=== PATIENT | male | born 1995 | race African-American/Black ===

== ENCOUNTER 2020-05-18 18:53 | Emergency (ER) | payer OTHER ==
--- NOTE | 2020-05-18 19:14 | ER Document Report ---
ED Medical Screen (RME) - General Chief Complaint: Chest Pain Stated Complaint: RAPID HEART RATE, Time Seen by Provider: 05/18/20 19:09 Mode of Arrival: Ambulatory Information source: Patient Notes: 25-year-old male presented to ED for anxiety and chest pain. He states he took a withdrawal from a friend's vape and did not realize that it was laced with marijuana and has become very anxious and his chest is hurting he is having palpitations. 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 He states he goes to school online. He is requesting something to reverse the marijuana and the anxiety. He states he is very anxious. I have greeted and performed a rapid initial assessment of this patient. A comprehensive ED assessment and evaluation of the patient, analysis of test results and completion of medical decision making process will be conducted by an additional ED providers. - Related Data Allergies/Adverse Reactions: No Known Allergies Allergy (Unverified 05/18/20 19:07)
--- NOTE | 2020-05-18 19:34 | RADIOLOGY REPORT (SQ) ---
EXAM DESCRIPTION: CHEST 2 VIEWS IMAGES COMPLETED DATE/TIME: 05/18/2020 7:27 pm REASON FOR STUDY: chest pain COMPARISON: None. EXAM PARAMETERS: NUMBER OF VIEWS: two views TECHNIQUE: Digital Frontal and Lateral radiographic views of the chest acquired. RADIATION DOSE: NA LIMITATIONS: none FINDINGS: LUNGS AND PLEURA: Hyperexpansion. No consolidation or effusions. No pneumothorax. MEDIASTINUM AND HILAR STRUCTURES: No masses or contour abnormalities. HEART AND VASCULAR STRUCTURES: Heart normal size. No evidence for failure. BONES: No acute findings. HARDWARE: None in the chest. OTHER: No other significant finding. IMPRESSION: Mild hyperexpansion otherwise negative two-view chest. TECHNICAL DOCUMENTATION: JOB ID: [id number] 2010 [employer]- All Rights Reserved Reading location - IP/workstation name: [email or web address]
[2020-05-18] MEDS ORDERED: LORAZEPAM 0.5 MG TABLET PO ONE (19:35)
[2020-05-18 19:39] LABS: ABSOLUTE EOSINOPHILS # (AUTO) 0.2 10^3/uL (0.0-0.6); ABSOLUTE LYMPHOCYTES (AUTO) 3.5 10^3/uL (0.5-4.7); ABSOLUTE MONOCYTES (AUTO) 0.3 10^3/uL (0.1-1.4); ABSOLUTE NEUT (AUTO) 2.7 10^3/uL (1.7-8.2); BASOPHILS % (AUTO) 0.5 % (0-2); EOSINOPHILS % (AUTO) 2.5 % (0-6); HEMATOCRIT 44.1 % (37.9-51.0); HEMOGLOBIN 15.3 g/dL (13.5-17.0); LYMPHOCYTES % (AUTO) 51.9 % (13-45); MEAN CORPUSCULAR HEMOGLOBIN 30.7 pg (27.0-33.4); MEAN CORPUSCULAR HGB CONC 34.8 g/dL (32.0-36.0); MEAN CORPUSCULAR VOLUME 88 fl (80-97); MONOCYTES % (AUTO) 5.2 % (3-13); PLATELET COUNT 240 10^3/uL (150-450); RED CELL DISTRIBUTION WIDTH 13.2 % (11.5-14.0); SEGMENTED NEUTROPHILS % (AUTO) 39.9 % (42-78); TOTAL CELLS COUNTED % (AUTO) 100 %; WHITE BLOOD COUNT 6.7 10^3/uL (4.0-10.5)
--- NOTE | 2020-05-18 19:52 | EKG REPORT ---
SEVERITY:- BORDERLINE ECG - SINUS TACHYCARDIA PROBABLE LEFT ATRIAL ABNORMALITY : Confirmed by: Jaquan Greenfield MD 18-May-2020 19:51:24
[2020-05-18 19:56] LABS: ALBUMIN 4.9 g/dL (3.5-5.0); ALKALINE PHOSPHATASE 60 U/L (38-126); ANION GAP 14 (5-19); ASPARTATE AMINO TRANSFERASE 25 U/L (17-59); BILIRUBIN,TOTAL 0.5 mg/dL (0.2-1.3); BLOOD UREA NITROGEN 12 mg/dL (7-20); CALCIUM 9.6 mg/dL (8.4-10.2); CARBON DIOXIDE 22 mmol/L (22-30); CHLORIDE 103 mmol/L (98-107); CREATINE KINASE 174 U/L (55-170); GLUCOSE 127 mg/dL (75-110); TOTAL PROTEIN 8.2 g/dL (6.3-8.2)
[2020-05-18 20:14] LABS: AMORPHOUS SEDIMENT,URINE TRACE /HPF; APPEARANCE,URINE CLEAR; BILIRUBIN,URINE NEGATIVE (NEGATIVE); COLOR,URINE YELLOW; GLUCOSE, URINE NEGATIVE (NEGATIVE); KETONES,URINE NEGATIVE (NEGATIVE); LEUKOCYTE ESTERASE,URINE NEGATIVE (NEGATIVE); NITRITE,URINE NEGATIVE (NEGATIVE); PROTEIN,URINE NEGATIVE (NEGATIVE); URINE SPECIFIC GRAVITY 1.016
[2020-05-18 20:29] LABS: URINE AMPHETAMINES SCREEN NEGATIVE; URINE BARBITURATES SCREEN NEGATIVE; URINE BENZODIAZEPINES SCREEN NEGATIVE; URINE COCAINE SCREEN NEGATIVE; URINE MARIJUANA (THC) SCREEN NEGATIVE; URINE METHADONE SCREEN NEGATIVE; URINE PHENCYCLIDINE SCREEN NEGATIVE
--- NOTE | 2020-05-18 20:36 | ER Document Report ---
ED General - General Chief Complaint: Chest Pain Stated Complaint: RAPID HEART RATE, Time Seen by Provider: 05/18/20 19:09 [facility] Care Provider: [facility] [[facility]] - Follow up as needed Mode of Arrival: Ambulatory - [facility] Notes: Patient is a 25 y/o male with no medical history who presents for chest pain and anxiety that occurred one hour prior to arrival. Patient states he "took a hit of his friend vape" and was not aware there was THC oil in it. Patient states he became paranoid and began experiencing shortness of breath, chest tightness, and palpitations. Patient states his symptoms are slowly improving. He denies nausea, vomiting, abdominal pain, diarrhea, constipation, and fever. He endorses occasional alcohol use but denies tobacco and recreational drug use. He denies any surgical history. - Related Data Allergies/Adverse Reactions: No Known Allergies Allergy (Unverified 05/18/20 19:07) Past Medical History - General Information source: Patient - Social History Smoking Status: Never Smoker Chew tobacco use (# tins/day): No Frequency of alcohol use: Occasional Drug Abuse: None Family History: Reviewed & Not Pertinent Patient has homicidal ideation: No Review of Systems - Review of Systems Constitutional: No symptoms reported EENT: No symptoms reported Cardiovascular: See HPI Respiratory: See HPI Gastrointestinal: No symptoms reported Genitourinary: No symptoms reported Male Genitourinary: No symptoms reported Musculoskeletal: No symptoms reported Skin: No symptoms reported Hematologic/Lymphatic: No symptoms reported Neurological/Psychological: See HPI Physical Exam - Vital signs Vitals: Pulse Resp BP Pulse Ox 95 20 157/97 H 100 05/18/20 19:11 05/18/20 19:11 05/18/20 19:11 05/18/20 19:11 - Notes Notes: PHYSICAL EXAMINATION: VITALS: Vitals reviewed and within normal limits. GENERAL: Well-appearing, well-nourished and in no acute distress. HEAD: Atraumatic, normocephalic. EYES: Pupils equal, round, and reactive to light, extraocular movements intact, sclera anicteric, conjunctiva are normal. ENT: Nares patent. Moist mucous membranes. NECK: Normal range of motion, supple without lymphadenopathy. LUNGS: Breath sounds clear to auscultation bilaterally and equal. No wheezes, rales, or rhonchi. HEART: Regular, rate, and rhythm without murmurs. ABDOMEN: Soft, nontender, normoactive bowel sounds. No guarding, no rebound. No masses appreciated. EXTREMITIES: Normal range of motion, no pitting or edema. No cyanosis. NEUROLOGICAL: No focal neurological deficits. Moves all extremities spontaneously and on command. PSYCH: Normal mood, normal affect. SKIN: Warm, Dry, normal turgor, no rashes or lesions noted. Course - Re-evaluation Re-evalutation: Patient is a 25-year-old male with no medical history who presents with chest pain and anxiety after taking a hit from his friend's vape with THC oil. P mita is mildly hypertensive with a BP of 157/97. Vital signs are otherwise unremarkable. On exam, lungs are clear to auscultation bilaterally with a regular heart rate and rhythm. EKG shows sinus tachycardia at a rate of 106. CBC is unremarkable and within normal limits. CMP shows a mildly elevated Cr of 1.27. CK is mildly elevated at 174 and Mg is also mildly elevated at 2.4. TSH is normal. Troponin is negative. UA is unremarkable and within normal limits. UDS negative. Chest XR shows mild hyperexpansion but is otherwise negative. Presentation of chest pain in an otherwise well appearing patient. Low clinical suspicion for ACS given clinical history, exam, EKG without ST elevations or depressions, and negative initial troponin. HEART score less than or equal to 3. PE also seems unlikely given clinical history, absence of tachycardia or dyspnea. Patient is PERC criteria negative. CXR without evidence of pneumothorax or pneumonia. No widened mediastinum. Aortic dissection also seems unlikely given history, symmetric pulses, CXR, and vitals. HEART Score: 0 Chest pain in a patient without evidence of cardiac or other serious etiology on workup today. I discussed with patient that, based on their age, risk factors and emergency department testing today, the likelihood that their symptoms are related to a heart attack is very low (estimated risk of heart attack or over the next 30 days of less than 1%). The patient demonstrates decision making capacity and has verbalized an understanding of these risks to me. Based on this, the patient has chosen to follow-up as an outpatient. Usual chest pain return precautions reviewed. The patient states understanding and agreement with this plan. - Vital Signs Vital signs: Temp Pulse Resp BP Pulse Ox 95 14 117/77 100 05/18/20 19:11 05/18/20 21:42 05/18/20 21:42 05/18/20 21:42 - Laboratory Result Diagrams: 05/18/20 19:21 05/18/20 19:21 Laboratory results interpreted by me: 05/18/20 05/18/20 05/18/20 19:21 19:21 19:49 Lymph % (Auto) 51.9 H Seg Neutrophils % 39.9 L Creatinine 1.27 H Glucose 127 H Magnesium 2.4 H Creatine Kinase 174 H Urine Urobilinogen 2.0 H - Diagnostic Test Radiology reviewed: Reports reviewed Radiology results interpreted by me: Chest X-Ray 05/18/20 19:13 IMPRESSION: Mild hyperexpansion otherwise negative two-view chest. - EKG Interpretation by Me Additional EKG results interpreted by me: Sinus tachycardia with a rate of 106. QTc 441. Normal axis. No T wave inversions or ST segment changes in consecutive leads. Discharge - Discharge Clinical Impression: Shortness of breath, Anxiety Chest pain Qualifiers: Chest pain type: unspecified Qualified Code(s): R07.9 - Chest pain, unspecified Condition: Stable Disposition: HOME, SELF-CARE Instructions: Anxiety ([facility]) Additional Instructions: You were seen today for chest pain. The exact cause of your pain is unclear. However, based on your cardiac enzyme testing, chest x-ray, and EKG it does not appear that it is from an immediately life-threatening cause at this time. Although your testing here is normal it is critical that you follow-up with your primary care physician for continued evaluation of this chest pain and possible stress testing. I recommended you see your physician within the next 24-48 hours to be evaluated for consideration of a stress test. Please return to emergency department immediately if you have worsening of your chest pain, shortness of breath, vomiting, become unable to exert yourself due to pain or difficulty breathing, you pass out, or have any pain that radiates into your arms, jaw, or back. Please also return if you have any additional symptoms that are concerning to you. Referrals: [facility] [Primary Care Provider] - Follow up as needed
[2020-05-18 21:46] VITALS: BP 117/77
== END 2020-05-18 21:47 | disposition home or self-care (01) ==
LOC: ER 18:53
DX: R06.02 Shortness of breath (principal); F41.9 Anxiety disorder, unspecified; R07.9 Chest pain, unspecified; R00.0 Tachycardia, unspecified
CPT/HCPCS: 36415; 71046; 80053; 80307; 81001; 82550; 83735; 84443; 84484; 85025; 93005; 93010; 99285

== ENCOUNTER 2020-07-25 01:29 | Emergency (ER) | payer OTHER ==
[2020-07-25 03:13] LABS: ABSOLUTE EOSINOPHILS # (AUTO) 0.2 10^3/uL (0.0-0.6); ABSOLUTE MONOCYTES (AUTO) 0.4 10^3/uL (0.1-1.4); BASOPHILS % (AUTO) 0.4 % (0-2); EOSINOPHILS % (AUTO) 2.7 % (0-6); HEMATOCRIT 39.9 % (37.9-51.0); HEMOGLOBIN 13.2 g/dL (13.5-17.0); LYMPHOCYTES % (AUTO) 34.7 % (13-45); MEAN CORPUSCULAR VOLUME 88 fl (80-97); MONOCYTES % (AUTO) 4.1 % (3-13); PLATELET COUNT 254 10^3/uL (150-450); RED BLOOD COUNT 4.54 10^6/uL (4.35-5.55); RED CELL DISTRIBUTION WIDTH 13.7 % (11.5-14.0); SEGMENTED NEUTROPHILS % (AUTO) 58.1 % (42-78); TOTAL CELLS COUNTED % (AUTO) 100 %; WHITE BLOOD COUNT 8.7 10^3/uL (4.0-10.5)
[2020-07-25 03:42] LABS: CREATINE KINASE MB < 0.22 ng/mL (<4.55); TROPONIN I < 0.012 ng/mL
[2020-07-25 03:52] LABS: ALBUMIN 4.3 g/dL (3.5-5.0); ALKALINE PHOSPHATASE 49 U/L (38-126); ANION GAP 7 (5-19); ASPARTATE AMINO TRANSFERASE 27 U/L (17-59); BILIRUBIN,DIRECT 0.2 mg/dL (0.0-0.4); BILIRUBIN,TOTAL 0.5 mg/dL (0.2-1.3); BLOOD UREA NITROGEN 13 mg/dL (7-20); CALCIUM 8.9 mg/dL (8.4-10.2); CARBON DIOXIDE 26 mmol/L (22-30); CHLORIDE 104 mmol/L (98-107); CREATINE KINASE 158 U/L (55-170); GLUCOSE 111 mg/dL (75-110); POTASSIUM 3.8 mmol/L (3.6-5.0); TOTAL PROTEIN 7.5 g/dL (6.3-8.2)
--- NOTE | 2020-07-25 03:54 | RADIOLOGY REPORT (SQ) ---
EXAM DESCRIPTION: X-ray two view chest. CLINICAL HISTORY: 25 years Male, SOB COMPARISON: 05/18/2020 TECHNIQUE: PA and Lateral views of the chest performed on 07/25/2020 and 3:18 AM FINDINGS: The lungs are well expanded and are clear. The costophrenic sulci are clear. There is no evidence of a pneumothorax. The cardiac silhouette is normal in size. The mediastinal contours are normal. No acute osseous abnormalities are identified. No focal soft tissue abnormalities are identified. IMPRESSION: No evidence of acute intrathoracic disease.
--- NOTE | 2020-07-25 05:43 | ER Document Report ---
ED General - General Chief Complaint: Chest Tightness Stated Complaint: POSSIBLE ALLERGIC REACTION Time Seen by Provider: 07/25/20 04:54 Primary Care Provider: ZACHARY FAIRBANKS [Primary Care Provider] - 07/27/20 Mode of Arrival: Ambulatory Information source: Patient Notes: 25-year-old male presented to ED for complaint of muscle tightness chest tightness short of breath sweaty tightening in his chest vision blurry and shaking 12 hours after taking his first dose of bupropion. He states he took the medication about 10:30 AM and about 10:30 PM he started having the symptoms. He states he became very concerned and came into the emergency room. He states he has had panic attacks before but is never had shaking where he could not control it and had swelling in his hands. He states he does have a appointment with his doctor the prescribed this medicine on Monday. He states that this time he feels much better he no longer has a tightness in his chest he does not have the pain he just feels tired now. States he is ready to go home and go to bed now. He states all the symptoms were relieved on their own. Constitutional: Negative for fever. HENT: Negative for sore throat. Eyes: Negative for visual changes. Cardiovascular: Complains of chest tightness and sharp pains 12 hours after taking the bupropion Respiratory: States he was short of breath around 10:30 PM but is no longer short of breath Gastrointestinal: Negative for abdominal pain, vomiting or diarrhea. Genitourinary: Negative for dysuria. Musculoskeletal: Negative for back pain. Skin: Negative for rash. Neurological: States he was having uncontrollable shaking and blurred vision around 10:30 PM but is not having any the symptoms now 10 point ROS negative except as marked above and in HPI. VITAL SIGNS: Within normal limits. GENERAL: No acute distress, non-toxic appearance. HEAD: Normal with no signs of head trauma. EYES: PERRLA, EOMI, conjunctiva normal, no discharge. EARS: Hearing grossly intact. NOSE: Normal. THROAT: Oropharynx is normal. NECK: Normal range of motion, no tenderness, supple, no lymphadenopathy, No adenopathy, no JVD. CHEST: Clear breath sounds bilaterally. No wheezes, rales, or rhonchi. CARDIAC: Regular rate and rhythm. S1 and S2, without murmurs, gallops, or rubs. ABDOMEN: Normal and soft with no tenderness, no masses or pulsatile masses. GASTROINTESTINAL: Bowel sounds normal LYMPATHTIC: No lymphadenopathy noted. MUSCULOSKELETAL: Good range of motion of all major joints. Extremities without clubbing, cyanosis or edema. NEUROLOGICAL: Alert and oriented x 3. No focal sensory or strength deficits. Speech normal. Follows commands appropriately. PSYCHIATRIC: Normal Affect, judgement and mood. SKIN: Normal appearance with no rashes or lesions. TRAVEL OUTSIDE OF THE [place] IN LAST 30 DAYS: No - HPI Onset: Other - Around 10:30 PM tonight Onset/Duration: Gone Quality of pain: No pain Severity: None Pain Level: Denies Associated symptoms: Chest pain, Shortness of breath, Sweating, Other - Patient states had blurred vision sharp pains shaking but all the symptoms relieved on their own and he has no symptoms at this time Exacerbated by: Denies Relieved by: Denies Similar symptoms previously: Yes Recently seen / treated by doctor: Yes - Related Data Allergies/Adverse Reactions: cats Allergy (Uncoded 07/25/20 01:53) Home Medications: Bupropion Past Medical History - General Information source: Patient - Social History Smoking Status: Never Smoker Chew tobacco use (# tins/day): No Frequency of alcohol use: Rare Drug Abuse: None Family History: Reviewed & Not Pertinent Patient has suicidal ideation: No Patient has homicidal ideation: No - Past Medical History Cardiac Medical History: Reports: None Pulmonary Medical History: Reports: None EENT Medical History: Reports: None Neurological Medical History: Reports: None Endocrine Medical History: Reports: None Renal/ Medical History: Reports: None Malignancy Medical History: Reports None GI Medical History: Reports: None Musculoskeletal Medical History: Reports None Skin Medical History: Reports None Psychiatric Medical History: Reports: Hx Anxiety, Hx Attention Deficit Hyperactivity Disorder, Hx Depression, Other - Panic attacks Traumatic Medical History: Reports: None Infectious Medical History: Reports: None Surgical Hx: Negative Past Surgical History: Reports: None Physical Exam - Vital signs Vitals: Temp Pulse Resp BP Pulse Ox 97.9 F 87 18 139/95 H 100 07/25/20 01:54 07/25/20 01:54 07/25/20 01:54 07/25/20 01:54 07/25/20 01:54 Course - Re-evaluation Re-evalutation: 07/25/20 05:43 Patient states that all his symptoms were relieved on their own he did not need any new medications. He states he has an appointment with his primary care did order this medication on Monday and he will get in touch with them by text to let them know that he has stopped taking the bupropion because of the panic attack tonight. Patient states he has no symptoms at this time and he is ready to go home. His lungs are clear. He has no swelling to the lips throat or mouth. He states he is having no symptoms except he is tired and ready to go to bed. - Vital Signs Vital signs: Temp Pulse Resp BP Pulse Ox 98.1 F 87 16 126/84 H 100 07/25/20 05:52 07/25/20 05:52 07/25/20 05:52 07/25/20 05:52 07/25/20 05:52 - Laboratory Results Result Diagrams: 07/25/20 02:52 07/25/20 02:52 Laboratory Results Interpreted: 07/25/20 07/25/20 02:52 02:52 Hgb 13.2 L Sodium 136.8 L Glucose 111 H Critical Laboratory Results Reviewed: No Critical Results - Radiology Results Critical Radiology Results Reviewed: No Critical Results Discharge - Discharge Clinical Impression: Panic attack, Possible reaction to bupropion Condition: Stable Disposition: HOME, SELF-CARE Additional Instructions: You states she started bupropion at 10:30 AM this morning and at 10:30 PM tonight you were having symptoms of a panic attack or allergic reaction. You have stated that all your symptoms are relieved you are no longer having chest pain shaking chest tightness shortness of breath vision changes. States the only symptom you are having now is tired and ready to go to bed. Do not take anymore the bupropion until you speak with your primary care and victor ve a follow-up visit. I have given you a copy of your labs and chest x-ray please take these with you to your primary care visit Monday FOLLOW-UP CARE: If you have been referred to a physician for follow-up care, call the physicians office for an appointment as you were instructed or within the next two days. If you experience worsening or a significant change in your symptoms, notify the physician immediately or return to the Emergency Department at any time for re-evaluation. Forms: Elevated Blood Pressure Referrals: [facility] [Primary Care Provider] - 07/27/20
[2020-07-25 05:53] VITALS: BP 126/84
--- NOTE | 2020-07-25 23:06 | EKG REPORT ---
SEVERITY:- NORMAL ECG - SINUS RHYTHM : Confirmed by: Blank Ramos 25-Jul-2020 23:06:28
== END 2020-07-25 05:59 | disposition home or self-care (01) ==
LOC: ER 01:29
DX: F41.0 Panic disorder [episodic paroxysmal anxiety] (principal); R07.9 Chest pain, unspecified; R06.02 Shortness of breath; H53.8 Other visual disturbances
CPT/HCPCS: 36415; 71046; 80053; 82550; 82553; 84484; 85025; 93005; 93010; 99285